=== PATIENT | male | born 1940 | race Caucasian/White ===

== ENCOUNTER 2024-07-24 18:17 | Emergency (ER) | payer MEDICARE, BC ==
[~2024-07-24] VITALS: Ht 182.9 cm; Wt 79.4 kg
[2024-07-24] MEDS ORDERED: ASPI81TA31 PO (18:41)
[2024-07-24] MEDS ORDERED: LEVO150T PO (18:41)
[2024-07-24] MEDS ORDERED: LORA-259 (18:41)
[2024-07-24] MEDS ORDERED: METF-442 (18:41)
[2024-07-24] MEDS ORDERED: LOSA25TA27 PO (18:41)
[2024-07-24] MEDS ORDERED: INSU100I14 SQ (18:41)
[2024-07-24] MEDS ORDERED: TAMS-3 (18:41)
[2024-07-24] MEDS: LIDOCAINE 1%-EPI 1:100,000 20 ML VIAL IJ ONE (19:22)
[2024-07-24] MEDS ORDERED: NEOMY/BACITRA/POLYMYXIN B OINT UD PACKET TP ONE (19:32)
[2024-07-24] MEDS: TDAP DIPH,PERTUSS,TET VAC/PF 0.5 ML DISP.SYRIN IM ONE (19:38)
[2024-07-24] MEDS: NEOMY/BACITRA/POLYMYXIN B OINT UD PACKET TP ONE (19:38)
[2024-07-24 19:57] VITALS: BP 128/80; TEMP 98; O2SAT 97
== END 2024-07-24 19:58 | disposition home or self-care (01) ==
LOC: ER 18:21
DX: S01.112A Laceration without foreign body of left eyelid and periocular area, initial encounter (principal); E78.5 Hyperlipidemia, unspecified; E11.9 Type 2 diabetes mellitus without complications; Z79.82 Long term (current) use of aspirin; Z79.890 Hormone replacement therapy; Z79.899 Other long term (current) drug therapy; W01.0XXA Fall on same level from slipping, tripping and stumbling without subsequent striking against object, initial encounter; Y93.89 Activity, other specified; Y92.89 Other specified places as the place of occurrence of the external cause; Y99.8 Other external cause status
CPT/HCPCS: A4606; A4663